=== PATIENT | male | born 1970 | race Caucasian/White ===

== ENCOUNTER 2021-11-26 15:09 | Inpatient (IN) | payer MEDICAID ==
[~2021-11-26] VITALS: Ht 175.3 cm; Wt 96.2 kg
[2021-11-26 15:12] VITALS: BP_SYST 126
--- NOTE | 2021-11-26 15:21 | NUR ---
Placed in room 5 . Placed on property assessment monitor, blood pressure machine and pulse oximeter. To gown for exam. Side rails up. Report given to JOSE D ZARAGOZA.
--- NOTE | 2021-11-26 16:08 | NUR ---
Patient noted to have urinary cath- emptied 1.2 L yellow urine. Will dip. Lab at BS.
[2021-11-26 16:27] LABS: EOSINOPHILS # (AUTO) 0.2 K/uL (0.0-0.4); HEMOGLOBIN 12.3 g/dL (14.0-18.0); MEAN CORPUSCULAR HEMOGLOBIN 29 pg (27-31)
[2021-11-26 16:31] LABS: BASOPHILS # (AUTO) 0.1 K/uL (0.0-0.2); BASOPHILS % (AUTO) 0.8 % (0.0-2.0); EOSINOPHILS % (AUTO) 1.6 % (0.0-4.0); HEMATOCRIT 36.9 % (36-54); LYMPHOCYTES # (AUTO) 2.5 K/uL (1.0-5.5); LYMPHOCYTES % (AUTO) 22.1 % (20.5-51.5); MEAN CORPUSCULAR HGB CONC 33 % (32-36); MEAN CORPUSCULAR VOLUME 86 fL (79.0-98.0); MONOCYTES # (AUTO) 0.6 K/uL (0.0-1.0); MONOCYTES % (AUTO) 5.8 % (1.7-9.3); NEUTROPHILS # (AUTO) 7.8 K/uL (1.8-7.7); NEUTROPHILS % (AUTO) 69.7 % (40.0-70.0); PLATELET COUNT (AUTO) 557 K/uL (130-430); RED CELL DISTRIBUTION WIDTH 14.9 % (9.0-15.0); WHITE BLOOD COUNT (AUTO) 11.1 K/uL (4.8-10.8)
[2021-11-26 16:36] LABS: BILIRUBIN,URINE NEGATIVE (NEGATIVE); CLARITY/URINE CLEAR (CLEAR); COLOR,URINE YELLOW (YELLOW); GLUCOSE,URINE NEGATIVE (NEGATIVE); KETONES,URINE NEGATIVE (NEGATIVE); LEUKOCYTE ESTERASE ,URINE NEGATIVE (NEGATIVE); NITRITE, URINE POSITIVE (NEGATIVE); PROTEIN URINE NEGATIVE (NEGATIVE); UROBILINOGEN,URINE 0.2 (0.2-1.0)
--- NOTE | 2021-11-26 16:36 | NUR ---
MORTEZA KO @ BS with patient.
[2021-11-26 16:41] LABS: CALCIUM 9.4 mg/dL (8.4-11.0); CREATININE 0.46 mg/dL (0.55-1.30); POTASSIUM 3.9 mmol/L (3.5-5.1)
[2021-11-26 16:44] LABS: BLOOD, URINE TRACE (NEGATIVE)
[2021-11-26 16:45] LABS: BACTERIA,URINE MODERATE /HPF (None Seen); MUCUS,URINE None Seen /LPF (None Seen); RBC,URINE 0-3 /HPF (0-3); WBC,URINE 0-3 /HPF (0-3)
[2021-11-26 16:46] LABS: ALBUMIN 2.8 g/dL (3.4-4.8); C-REACTIVE PROTEIN QUANT 0.2 mg/dL (0-0.5); TOTAL BILIRUBIN 0.3 mg/dL (0.0-1.0)
--- NOTE | 2021-11-26 17:00 | NUR ---
Pt incontinent of stool- cleansed patient and repositioned in bed. Pt very needy and asking multiple questions at the same time. Made pt aware that I would help him, but that I could only do one thing at a time.
[2021-11-26] MEDS ORDERED: cefTRIAXone 1 GM in LIDOCAINE 1%, 20 ML MDV 2.1 ML IM ONE (17:15)
[2021-11-26] MEDS ORDERED: MORPHINE 4 MG INJ. 4 MG/ML VIAL IVP ONE (17:15)
--- NOTE | 2021-11-26 18:28 | NUR ---
COVID swab sent
--- NOTE | 2021-11-26 19:14 | NUR ---
Report to Robles Manriquez RN.
[2021-11-26] MEDS ORDERED: BACL20TA PO (19:34)
[2021-11-26] MEDS ORDERED: GABA600T PO (19:35)
--- NOTE | 2021-11-26 19:53 | NUR ---
Pt turned onto left side at this time per patient request to alleviate pressure on coccyx. Pt speaking with significant other on phone. Pt informed awaiting approval of home meds in order for me to administer them. Pt on monitoring manager. Bed in low position. Side rails up.
[2021-11-26] MEDS ORDERED: BACLOFEN 10 MG TABLET PO ONE (20:15)
[2021-11-26] MEDS ORDERED: GABAPENTIN 300 MG CAPSULE PO ONE (20:15)
--- NOTE | 2021-11-26 20:27 | NUR ---
Attempted to reposition patient multiple times. Pt turned to left side, right side, and supine position with minimal relief of pain aside from medications. Pt also slid up in bed and HOB elevated to attempt to alleviate more pain. Pt states still has discomfort. Pt turned to left side again at this time.
--- NOTE | 2021-11-26 20:50 | NUR ---
aAdmit bed requested Patient will be admitted to care of . Admitted to Med Surg unit. Diagnosis UTI Inpatient (Yes or No) yes Observation (Yes or No) Orientation concerns or request close to nursing station (Yes or No) no Covid Status negative On vent or bipap Isolation requirements Needs a sitter From Home (Yes or if No enter name of facility) home Requires Dialysis (Yes or No) no Med Rec Completed (Yes of No) pending
--- NOTE | 2021-11-26 20:53 | NUR ---
Patient given another pillow to support left side of head. Pt also provided with emesis bag to spit saliva.
--- NOTE | 2021-11-26 21:20 | NUR ---
Patient will be admitted to care of [facility]. Admitted to unit. Will go to room . Belongings list completed. Complete and up to date summary report printed. SBAR report to be given at bedside with opportunity for questions.
--- NOTE | 2021-11-26 21:28 | NUR ---
Report given to JOSE D Gaxiola
[2021-11-26 21:54] VITALS: BP_SYST 114
--- NOTE | 2021-11-26 22:18 | NUR ---
CONSULTATION PAGED/CALLED Reason for Consultation: Uti Person Who was Notified: Ricardo Consulting Physician: Dr. Mason Clinical Coordinator Specialty: ID Ordering Physician: Dr. Apurva Tolbert
[2021-11-26] MEDS ORDERED: DOCUSATE SODIUM 100 MG CAPSULE PO ONE (23:15)
[2021-11-26] MEDS ORDERED: IBUPROFEN 600 MG TABLET PO ONE (23:15)
--- NOTE | 2021-11-26 23:15 | NUR ---
Dr. Mixon/Malachi orders Spoke with Dr. Mixon about patient's complaint of pain and constipation. Received order for milk of magnesia one time, Colace, melatonin, and ibuprofen.
[2021-11-26] MEDS: MILK OF MAGNESIA 30 ML UDC PO ONE ×2 (23:37)
[2021-11-27] VITALS (7 sets, daily range): BP systolic 93–123
--- NOTE | 2021-11-27 00:30 | NUR ---
Patient refused one time milk of magnesia because prune juice was not available at the time, but did have one medium soft/nonformed bowel movement and reported improved feeling of constipation. Incontinence care provided, linens changed. Call light in reach.
[2021-11-27] MEDS ORDERED: HYDROcodone/ACETAMIN 5-325 MG TAB (NORCO/ VICODIN) PO PRN ×2 (03:15→03:45)
--- NOTE | 2021-11-27 03:15 | NUR ---
Dr. Mixon/New orders Spoke with Dr. Mixon of patient's report of continued pain and difficulty sleeping. Received order for Stephen and trazodone PRN with readback and confirmation. Call light in reach.
--- NOTE | 2021-11-27 07:29 | NUR ---
Closing Patient resting in bed, unlabored breathing on room air. Turned and repositioned multiple times to offload weight on sacrum, where patient reports pain. Given Tramadol and Catharpin with some relief. Patient reported constipation upon admission to floor but had two soft/runny bowel movements during shift. Lima catheter in place, patent draining yellow urine. Exit alarm on, bed low and locked, fall and safety precautions in place.
[2021-11-27] MEDS ORDERED: LORazepam 2 MG/ML VIAL IVP PRN (08:30)
[2021-11-27] MEDS ORDERED: NALOXONE HCL 0.4 MG/ML AMP (NARCAN) IVP PRN (08:45)
[2021-11-27] MEDS ORDERED: BACLOFEN 10 MG TABLET PO SCH ×2 (09:00→21:00)
[2021-11-27] MEDS: DOCUSATE SODIUM 100 MG CAPSULE PO SCH ×2 (09:14→21:17)
[2021-11-27] MEDS: IBUPROFEN 600 MG TABLET PO SCH ×3 (09:18→21:16)
[2021-11-27] MEDS: GABAPENTIN 300 MG CAPSULE PO SCH ×3 (09:19→21:17)
[2021-11-27] MEDS: HYDROcodone/ACETAMIN 10-325 MG TAB PO PRN ×2 (09:20→13:45)
[2021-11-27] MEDS: NORMAL SALINE 5 ML DISP.SYRIN IVF SCH ×2 (13:22→21:18)
[2021-11-27] MEDS: cefTRIAXone 1 GM IVPB PREMIX 50 ML IV SCH (13:22)
[2021-11-27] MEDS ORDERED: NORMAL SALINE 5 ML DISP.SYRIN IVF SCH (14:00)
[2021-11-27] MEDS: ALBUTEROL SULFATE 0.083% 2.5 MG/3 ML VIAL.NEB INH PRN (18:04)
--- NOTE | 2021-11-27 19:07 | NUR ---
END OF SHIFT REPORT GIVEN TO JOSE D PANTOJA. THANK YOU
[2021-11-27] MEDS: traZODone HCL 50 MG TABLET (DESYREL) PO PRN (21:17)
[2021-11-27] MEDS: BACLOFEN 10 MG TABLET PO SCH (21:17)
[2021-11-28 00:30] VITALS: BP_SYST 102
[2021-11-28] MEDS: HYDROcodone/ACETAMIN 10-325 MG TAB PO PRN ×4 (00:53→16:01)
[2021-11-28] MEDS: NORMAL SALINE 5 ML DISP.SYRIN IVF SCH ×3 (05:48→21:49)
[2021-11-28 06:48] LABS: BASOPHILS # (AUTO) 0.1 K/uL (0.0-0.2); BASOPHILS % (AUTO) 0.6 % (0.0-2.0); EOSINOPHILS # (AUTO) 0.3 K/uL (0.0-0.4); EOSINOPHILS % (AUTO) 3.2 % (0.0-4.0); HEMOGLOBIN 11.2 g/dL (14.0-18.0); LYMPHOCYTES # (AUTO) 3.2 K/uL (1.0-5.5); LYMPHOCYTES % (AUTO) 36.9 % (20.5-51.5); MEAN CORPUSCULAR HEMOGLOBIN 29 pg (27-31); MEAN CORPUSCULAR HGB CONC 34 % (32-36); MEAN CORPUSCULAR VOLUME 86 fL (79.0-98.0); MONOCYTES # (AUTO) 0.7 K/uL (0.0-1.0); MONOCYTES % (AUTO) 8.2 % (1.7-9.3); NEUTROPHILS # (AUTO) 4.5 K/uL (1.8-7.7); NEUTROPHILS % (AUTO) 51.1 % (40.0-70.0); PLATELET COUNT (AUTO) 559 K/uL (130-430); RED BLOOD CELL COUNT(AUTO) 3.86 MIL/uL (4.2-6.2); RED CELL DISTRIBUTION WIDTH 15.1 % (9.0-15.0); WHITE BLOOD COUNT (AUTO) 8.7 K/uL (4.8-10.8)
--- NOTE | 2021-11-28 07:41 | NUR ---
Closing Patient resting in bed, unlabored breathing on room air. Turned and repositioned with pillow support. [place] given for complaint of back pain with some relief. Bed low and locked, fall and safety precautions in place.
[2021-11-28 07:54] LABS: ALBUMIN 2.6 g/dL (3.4-4.8); C-REACTIVE PROTEIN QUANT 0.6 mg/dL (0-0.5); CALCIUM 9.1 mg/dL (8.4-11.0); CREATININE 0.53 mg/dL (0.55-1.30); POTASSIUM 3.9 mmol/L (3.5-5.1); TOTAL BILIRUBIN 0.3 mg/dL (0.0-1.0)
[2021-11-28 08:00] VITALS: BP_SYST 106
--- NOTE | 2021-11-28 08:00 | NUR ---
OPENING NOTES: PATIENT EATING BREAKFAST W/ TOTAL ASSIST. HOB ELEVATED. BREATHING EVEN AND NON LABORED TO RA. FALL, SAFETY AND ASPIRATION MEASURES REINFORCED. BED LOCKED, ALARM ON AND IN LOWEST POSITION. CALL LIGHT WITHIN REACH.
[2021-11-28] MEDS: BACLOFEN 10 MG TABLET PO SCH ×4 (08:53→21:48)
[2021-11-28] MEDS: DOCUSATE SODIUM 100 MG CAPSULE PO SCH ×2 (08:53→21:48)
[2021-11-28] MEDS: IBUPROFEN 600 MG TABLET PO SCH ×3 (08:54→21:49)
[2021-11-28] MEDS: GABAPENTIN 300 MG CAPSULE PO SCH ×3 (08:57→21:48)
[2021-11-28] MEDS: cefTRIAXone 1 GM IVPB PREMIX 50 ML IV SCH (09:02)
[2021-11-28 09:08] LABS: ERYTHROCYTE SEDIMENTATION RATE 28 MM/HR (0-15)
[2021-11-28] MEDS ORDERED: POLYETHYLENE GLYCOL 3350, 17 GM/ POWD.PACK PO ONE (09:30)
[2021-11-28] MEDS ORDERED: SODIUM PHOSPHATE,MONO-DIBASIC 133 ML ENEMA RC ONE (09:30)
[2021-11-28 12:05] VITALS: BP_SYST 103
--- NOTE | 2021-11-28 16:13 | NUR ---
INCONTINENT CARE DONE: INCONTINENT CARE DONE. NO S/S OF ACUTE DISTRESS NOTED. REPOSITIONED PATIENT.
[2021-11-28 18:00] VITALS: BP_SYST 105
--- NOTE | 2021-11-28 19:00 | NUR ---
CLOSING NOTES: PATIENT RESTING IN BED. NO S/S OF ACUTE DISTRESS NOTED. NEEDS MET THROUGHOUT SHIFT. FALL AND SAFETY MEASURES PROVIDED. CALL LIGHT WITHIN REACH.
[2021-11-28 20:30] VITALS: BP_SYST 88
--- NOTE | 2021-11-28 20:47 | NUR ---
PAGED TO DR. ROMERO FOR ORDERS
--- NOTE | 2021-11-28 20:53 | NUR ---
BP 77/49, 88/50 on recheck. Patient alert and answering questions. Informed Dr. Mixon. Received order for 1 L NS bolus.
[2021-11-28] MEDS ORDERED: NACL 0.9% 1,000 ML IV ONE ×2 (21:00→23:30)
--- NOTE | 2021-11-28 23:28 | NUR ---
Informed Dr. Mixon of patient's BP 84/55 and low albumin. Received order for second 1 L NS bolus and D5 1/2 NS at 100 mL/hr.
[2021-11-29] VITALS (21 sets, daily range): BP systolic 89–131
[2021-11-29] MEDS: D5/0.45 NS 1,000 ML IV SCH ×3 (00:42→19:30)
[2021-11-29] MEDS: ALBUTEROL SULFATE 0.083% 2.5 MG/3 ML VIAL.NEB INH PRN (00:50)
--- NOTE | 2021-11-29 01:00 | NUR ---
BP 99/49. HOB positioned as low as tolerated by patient, feet elevated.
--- NOTE | 2021-11-29 04:30 | NUR ---
BP 89/57. Informed Dr. Mixon. Received order to transfer to ICU and for consult with Dr. Schroeder.
--- NOTE | 2021-11-29 05:20 | NUR ---
Opening notes Received report from Med-private advisor Khalida for continuity of care. Patient was transferred to ICU d/t hypotension. Patient's vital signs blood pressure 109/68, heart rate 69, and SPO2 96% on room air. Patient is in his bed in no signs of distress with IVF D5 1/2 NS @ 100 mL/hr.
[2021-11-29] MEDS: NORMAL SALINE 5 ML DISP.SYRIN IVF SCH ×3 (05:50→22:45)
[2021-11-29 06:20] LABS: BASOPHILS # (AUTO) 0.1 K/uL (0.0-0.2); BASOPHILS % (AUTO) 0.6 % (0.0-2.0); EOSINOPHILS # (AUTO) 0.3 K/uL (0.0-0.4); HEMATOCRIT 34.7 % (36-54); HEMOGLOBIN 11.6 g/dL (14.0-18.0); LYMPHOCYTES # (AUTO) 3.1 K/uL (1.0-5.5); LYMPHOCYTES % (AUTO) 32.1 % (20.5-51.5); MEAN CORPUSCULAR HEMOGLOBIN 29 pg (27-31); MEAN CORPUSCULAR HGB CONC 33 % (32-36); MEAN CORPUSCULAR VOLUME 87 fL (79.0-98.0); MONOCYTES % (AUTO) 10.7 % (1.7-9.3); NEUTROPHILS # (AUTO) 5.1 K/uL (1.8-7.7); NEUTROPHILS % (AUTO) 53.6 % (40.0-70.0); PLATELET COUNT (AUTO) 542 K/uL (130-430); RED BLOOD CELL COUNT(AUTO) 3.99 MIL/uL (4.2-6.2); RED CELL DISTRIBUTION WIDTH 15.2 % (9.0-15.0); WHITE BLOOD COUNT (AUTO) 9.5 K/uL (4.8-10.8)
[2021-11-29 06:39] LABS: C-REACTIVE PROTEIN QUANT 0.8 mg/dL (0-0.5); CALCIUM 9.2 mg/dL (8.4-11.0); CREATININE 0.49 mg/dL (0.55-1.30); POTASSIUM 4.2 mmol/L (3.5-5.1)
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
--- NOTE | 2021-11-29 08:14 | NUR ---
AWAITING ORDERS TO CONTINUE TREATMENT SINCE THE PATIENT HAS BEEN TRANSFERRED TO THE ICU.
--- NOTE | 2021-11-29 08:41 | NUR ---
Patient ate all of breakfast with nurse. no issues
[2021-11-29] MEDS: POLYETHYLENE GLYCOL 3350, 17 GM/ POWD.PACK PO SCH (09:51)
[2021-11-29] MEDS: GABAPENTIN 300 MG CAPSULE PO SCH ×3 (09:51→21:00)
[2021-11-29] MEDS: BACLOFEN 10 MG TABLET PO SCH ×2 (09:51→21:01)
[2021-11-29] MEDS: DOCUSATE SODIUM 100 MG CAPSULE PO SCH ×2 (09:51→20:58)
[2021-11-29] MEDS: cefTRIAXone 1 GM IVPB PREMIX 50 ML IV SCH (09:52)
[2021-11-29 10:17] LABS: ERYTHROCYTE SEDIMENTATION RATE 21 MM/HR (0-15)
[2021-11-29] MEDS: IBUPROFEN 600 MG TABLET PO SCH ×3 (12:03→21:00)
--- NOTE | 2021-11-29 13:01 | NUR ---
Patient ate 50% of lunch, but was unable to eat the chicken due to chewing ability. Dietary called and updated.
--- NOTE | 2021-11-29 16:24 | NUR ---
Dietitian Recommendations: Continue current diet order as tolerated Provide feeding assistance q meals daily Recommend continue daily bowel regimen Recommend prune juice daily or PRN for constipation Please refer to Nutrition Assessment for more details RAFAEL, JOSEE, ESTEPHANIA Addendum: 11/29/21 at [address] Amended: Links added.
[2021-11-29] MEDS ORDERED: BACLOFEN 10 MG TABLET PO ONE ×2 (16:30)
--- NOTE | 2021-11-29 16:30 | NUR ---
Patient was seen for OT eval for contracture management to both UE. Nursing said ok to see patient. Patient will benefit from wearing bilateral resting hand splints to prevent further LOM on both hands. Spoke to Nica, outpatient case manager and was able to speak to education teacher as well. Said will know by tomorrow availability of splints and will call rehab to notify. Pt. will be seen for OT follow up when splints arrive for adjustments, fitting, application of splints and caregiver training.
--- NOTE | 2021-11-29 16:31 | NUR ---
Referral sent to [facility] for hand splints [phone]-attn: Marcial Daniels
[2021-11-29] MEDS: HYDROcodone/ACETAMIN 5-325 MG TAB (NORCO/ VICODIN) PO PRN (18:52)
[2021-11-29] MEDS: MILK OF MAGNESIA 30 ML UDC PO PRN (18:52)
--- NOTE | 2021-11-29 19:00 | NUR ---
Received pt from outgoing nurse alert oriented x 3. vital done ,cares rendered and positioned to comfort side
--- NOTE | 2021-11-29 22:00 | NUR ---
vitals done patient medicated as ordered .offered some pudding
[2021-11-29] MEDS: SULFAMETHOXAZOLE /TRIMETHOPRIM 10 ML in D5W 250 ML IV SCH (22:47)
[2021-11-29] MEDS: MELATONIN 5 MG TABLET PO PRN (22:51)
--- NOTE | 2021-11-29 22:51 | NUR ---
pt medicated with melatonin for sleep vitals done and updated
[2021-11-30] VITALS (11 sets, daily range): BP systolic 109–138
[2021-11-30] MEDS: HYDROcodone/ACETAMIN 10-325 MG TAB PO PRN ×5 (00:39→22:32)
--- NOTE | 2021-11-30 00:39 | NUR ---
states pain 8/10 to both shoulders .medicated with [place] effectively
--- NOTE | 2021-11-30 04:00 | NUR ---
oxygen sats low
[2021-11-30] MEDS: D5/0.45 NS 1,000 ML IV SCH ×2 (05:30→13:51)
[2021-11-30] MEDS: NORMAL SALINE 5 ML DISP.SYRIN IVF SCH ×3 (05:37→22:00)
[2021-11-30] MEDS: SULFAMETHOXAZOLE /TRIMETHOPRIM 10 ML in D5W 250 ML IV SCH ×3 (06:28→22:34)
[2021-11-30 06:29] LABS: BASOPHILS % (AUTO) 0.3 % (0.0-2.0); EOSINOPHILS # (AUTO) 0.3 K/uL (0.0-0.4); EOSINOPHILS % (AUTO) 2.5 % (0.0-4.0); HEMATOCRIT 32.7 % (36-54); HEMOGLOBIN 10.9 g/dL (14.0-18.0); LYMPHOCYTES # (AUTO) 4.8 K/uL (1.0-5.5); MEAN CORPUSCULAR HEMOGLOBIN 29 pg (27-31); MEAN CORPUSCULAR HGB CONC 33 % (32-36); MEAN CORPUSCULAR VOLUME 87 fL (79.0-98.0); MONOCYTES # (AUTO) 1.1 K/uL (0.0-1.0); MONOCYTES % (AUTO) 9.1 % (1.7-9.3); NEUTROPHILS # (AUTO) 6.1 K/uL (1.8-7.7); NEUTROPHILS % (AUTO) 49.1 % (40.0-70.0); PLATELET COUNT (AUTO) 492 K/uL (130-430); RED BLOOD CELL COUNT(AUTO) 3.77 MIL/uL (4.2-6.2); RED CELL DISTRIBUTION WIDTH 15.5 % (9.0-15.0)
[2021-11-30 07:02] LABS: ALANINE AMINOTRANSFERASE 24 U/L (12-78); ALBUMIN 2.5 g/dL (3.4-4.8); ANION GAP 6 (5-15); ASPARTATE AMINOTRANSFERASE 11 U/L (10-37); C-REACTIVE PROTEIN QUANT 1.1 mg/dL (0-0.5); CALCIUM 8.6 mg/dL (8.4-11.0); CHLORIDE 106 mmol/L (98-107); CREATININE 0.49 mg/dL (0.55-1.30); GLUCOSE 104 mg/dL (70-99); POTASSIUM 4.1 mmol/L (3.5-5.1); SODIUM SERUM 138 mmol/L (136-145); TOTAL BILIRUBIN < 0.1 mg/dL (0.0-1.0); UREA NITROGEN, BLOOD 5 mg/dL (8-21)
[2021-11-30 07:37] LABS: GFR AFRICAN AMERICAN 229 mL/min (>90)
[2021-11-30 07:58] LABS: WHITE BLOOD COUNT (AUTO) 12.4 K/uL (4.8-10.8)
--- NOTE | 2021-11-30 08:00 | NUR ---
Initial notes awake, alert. denies any shortness of breath. has chronic back pain, will medicate. IVF infusing well. No distress
--- NOTE | 2021-11-30 08:00 | NUR ---
RT NOTES Pt. was noted to desat when asleep, offered to put O2, pt refused. Pt. confirmed of NIURKA diagnosis, but stated he refused to wear it from day one.
[2021-11-30] MEDS: DOCUSATE SODIUM 100 MG CAPSULE PO SCH ×2 (08:50→22:33)
[2021-11-30] MEDS: POLYETHYLENE GLYCOL 3350, 17 GM/ POWD.PACK PO SCH (08:50)
[2021-11-30] MEDS: IBUPROFEN 600 MG TABLET PO SCH ×3 (08:51→22:47)
[2021-11-30 09:18] LABS: ERYTHROCYTE SEDIMENTATION RATE 23 MM/HR (0-15)
[2021-11-30] MEDS: cefTRIAXone 1 GM IVPB PREMIX 50 ML IV SCH (09:36)
[2021-11-30] MEDS: GABAPENTIN 300 MG CAPSULE PO SCH ×3 (09:36→22:33)
[2021-11-30] MEDS: BACLOFEN 10 MG TABLET PO SCH ×3 (09:36→22:33)
--- NOTE | 2021-11-30 10:00 | NUR ---
transfer to [facility] unit, awake and oriented, no distress, on room air, v/s stable. skin intact
[2021-11-30] MEDS: MILK OF MAGNESIA 30 ML UDC PO PRN (22:47)
[2021-11-30] MEDS ORDERED: MELATONIN 5 MG TABLET PO ONE (23:02)
[2021-11-30] MEDS: MELATONIN 5 MG TABLET PO PRN (23:09)
[2021-12-01] MEDS: D5/0.45 NS 1,000 ML IV SCH ×3 (02:14→21:30)
[2021-12-01] MEDS: HYDROcodone/ACETAMIN 10-325 MG TAB PO PRN ×4 (03:38→20:53)
[2021-12-01] MEDS: NORMAL SALINE 5 ML DISP.SYRIN IVF SCH ×3 (06:02→21:07)
[2021-12-01] MEDS: SULFAMETHOXAZOLE /TRIMETHOPRIM 10 ML in D5W 250 ML IV SCH ×3 (06:03→21:07)
[2021-12-01 08:10] LABS: BASOPHILS # (AUTO) 0.1 K/uL (0.0-0.2); BASOPHILS % (AUTO) 0.8 % (0.0-2.0); EOSINOPHILS # (AUTO) 0.4 K/uL (0.0-0.4); EOSINOPHILS % (AUTO) 4.6 % (0.0-4.0); HEMATOCRIT 31.2 % (36-54); HEMOGLOBIN 10.6 g/dL (14.0-18.0); LYMPHOCYTES # (AUTO) 2.9 K/uL (1.0-5.5); LYMPHOCYTES % (AUTO) 36.8 % (20.5-51.5); MEAN CORPUSCULAR HEMOGLOBIN 29 pg (27-31); MEAN CORPUSCULAR HGB CONC 34 % (32-36); MEAN CORPUSCULAR VOLUME 86 fL (79.0-98.0); MONOCYTES # (AUTO) 0.7 K/uL (0.0-1.0); NEUTROPHILS # (AUTO) 3.9 K/uL (1.8-7.7); NEUTROPHILS % (AUTO) 48.8 % (40.0-70.0); PLATELET COUNT (AUTO) 468 K/uL (130-430); RED BLOOD CELL COUNT(AUTO) 3.61 MIL/uL (4.2-6.2); RED CELL DISTRIBUTION WIDTH 15.3 % (9.0-15.0); WHITE BLOOD COUNT (AUTO) 7.9 K/uL (4.8-10.8)
[2021-12-01] MEDS: POLYETHYLENE GLYCOL 3350, 17 GM/ POWD.PACK PO SCH (08:45)
[2021-12-01] MEDS: GABAPENTIN 300 MG CAPSULE PO SCH ×3 (08:45→20:51)
[2021-12-01] MEDS: IBUPROFEN 600 MG TABLET PO SCH ×3 (08:46→20:52)
[2021-12-01] MEDS: DOCUSATE SODIUM 100 MG CAPSULE PO SCH ×2 (08:46→20:51)
[2021-12-01 08:48] LABS: C-REACTIVE PROTEIN QUANT 1.7 mg/dL (0-0.5); CALCIUM 8.5 mg/dL (8.4-11.0); CREATININE 0.52 mg/dL (0.55-1.30); POTASSIUM 4.1 mmol/L (3.5-5.1)
[2021-12-01] MEDS: BACLOFEN 10 MG TABLET PO SCH ×3 (08:52→20:51)
[2021-12-01 12:07] VITALS: BP_SYST 142
[2021-12-01 12:26] LABS: ERYTHROCYTE SEDIMENTATION RATE 26 MM/HR (0-15)
--- NOTE | 2021-12-01 14:58 | NUR ---
Discharge Planning: DCP faxed pt referral to [facility] F#[phone]. DCP to follow up
[2021-12-01 16:02] VITALS: BP_SYST 136
[2021-12-02 01:11] VITALS: BP_SYST 105
[2021-12-02] MEDS: traZODone HCL 50 MG TABLET (DESYREL) PO PRN (01:44)
[2021-12-02] MEDS: HYDROcodone/ACETAMIN 10-325 MG TAB PO PRN ×3 (01:45→18:48)
[2021-12-02] MEDS: SULFAMETHOXAZOLE /TRIMETHOPRIM 10 ML in D5W 250 ML IV SCH ×2 (06:44→14:33)
[2021-12-02] MEDS: D5/0.45 NS 1,000 ML IV SCH ×2 (06:45→08:52)
[2021-12-02] MEDS: NORMAL SALINE 5 ML DISP.SYRIN IVF SCH ×3 (06:45→22:26)
[2021-12-02 07:34] LABS: BASOPHILS % (AUTO) 0.6 % (0.0-2.0); EOSINOPHILS # (AUTO) 0.4 K/uL (0.0-0.4); HEMATOCRIT 31.7 % (36-54); HEMOGLOBIN 10.7 g/dL (14.0-18.0); LYMPHOCYTES % (AUTO) 36.9 % (20.5-51.5); MEAN CORPUSCULAR HEMOGLOBIN 29 pg (27-31); MEAN CORPUSCULAR HGB CONC 34 % (32-36); MEAN CORPUSCULAR VOLUME 86 fL (79.0-98.0); MONOCYTES # (AUTO) 0.7 K/uL (0.0-1.0); MONOCYTES % (AUTO) 8.5 % (1.7-9.3); PLATELET COUNT (AUTO) 450 K/uL (130-430); RED BLOOD CELL COUNT(AUTO) 3.69 MIL/uL (4.2-6.2); RED CELL DISTRIBUTION WIDTH 15.7 % (9.0-15.0); WHITE BLOOD COUNT (AUTO) 8.1 K/uL (4.8-10.8)
[2021-12-02 08:00] VITALS: BP_SYST 101
--- NOTE | 2021-12-02 08:42 | NUR ---
Discharge Planning: DCP faxed pt Vil[facility] [phone] DCP to follow up Addendum: 12/02/21 at 1635 by Anjana Jimenez DP Vilma [facility] [phone] declined pt.
[2021-12-02] MEDS: POLYETHYLENE GLYCOL 3350, 17 GM/ POWD.PACK PO SCH (08:52)
[2021-12-02] MEDS: DOCUSATE SODIUM 100 MG CAPSULE PO SCH ×2 (08:53→22:23)
[2021-12-02] MEDS: IBUPROFEN 600 MG TABLET PO SCH ×3 (08:53→22:25)
[2021-12-02] MEDS: BACLOFEN 10 MG TABLET PO SCH ×3 (08:53→22:23)
[2021-12-02] MEDS: GABAPENTIN 300 MG CAPSULE PO SCH ×3 (08:54→22:25)
[2021-12-02 09:34] LABS: ALBUMIN 2.4 g/dL (3.4-4.8); C-REACTIVE PROTEIN QUANT 1.2 mg/dL (0-0.5); CREATININE 0.66 mg/dL (0.55-1.30); POTASSIUM 4.6 mmol/L (3.5-5.1); TOTAL BILIRUBIN 0.2 mg/dL (0.0-1.0)
--- NOTE | 2021-12-02 10:48 | NUR ---
RECEIVED MD ORDER TO RESUME PHYSICAL THERAPY. PATIENT REMAINS AT HIS PRIOR LEVEL OF FUNCTION. TREATMENT FOR ROM AND ASSISTED SITTING AT THE EDGE OF BED WILL BE RESUMED. STILL AWAITING HAND SPLINTS FOR THE OT FOLLOW UP.
[2021-12-02] MEDS: MILK OF MAGNESIA 30 ML UDC PO PRN (11:27)
[2021-12-02 12:00] VITALS: BP_SYST 103
[2021-12-02] MEDS ORDERED: HYDR-3927 PO (12:00)
[2021-12-02] MEDS ORDERED: MOM PO (12:00)
[2021-12-02] MEDS ORDERED: HYDR-3919 PO (12:00)
[2021-12-02] MEDS ORDERED: TRAZ-250 PO (12:00)
[2021-12-02] MEDS ORDERED: POLY17PO4 PO (12:00)
[2021-12-02] MEDS ORDERED: [UNRECOGNIZED DRUG - CODE] IV (12:00)
[2021-12-02] MEDS ORDERED: Melatonin PO (12:00)
[2021-12-02 12:19] LABS: ERYTHROCYTE SEDIMENTATION RATE 23 MM/HR (0-15)
[2021-12-02] MEDS: ALBUTEROL SULFATE 0.083% 2.5 MG/3 ML VIAL.NEB INH PRN (14:21)
[2021-12-02] MEDS: HYDROcodone/ACETAMIN 5-325 MG TAB (NORCO/ VICODIN) PO PRN (14:43)
[2021-12-02 16:00] VITALS: BP_SYST 108
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
--- NOTE | 2021-12-02 17:15 | NUR ---
Dietitian Recommendations * Continue Regular diet * Continue daily bowel regimen * Prune juice daily or PRN for constipation LP, MS, RD Please refer to Nutrition F/U for details.
--- NOTE | 2021-12-02 19:30 | NUR ---
HAND-OFF REPORT RECEIVED FROM MOMO JEFFERY...."PT WANTS ENEMA". PT RECEIVED AWAKE IN BED. "I THINK I'M SOILED". NOTED MASSIVE AMT OF SOFT THICK BROWN UNFORMED STOOL SQUISHED UP AND OOZING OUT BOTH SIDES OF THE HIPS. PT STATED ABDOMINAL RELIEF UPON PASSING. TOTAL BATH AND LINEN CHANGE GIVEN. MONITOR AND ASSIST WITH COMFORT MEASURES AND PAIN.
[2021-12-02 20:00] VITALS: BP_SYST 124
--- NOTE | 2021-12-03 | NUR ---
SEE MAR PRN PAIN HEAD SAWYER AUTOMATIC. CONT. TO TURN AND ELEVATE EXTREMITIES ON PILLOWS PER COMFORT AND PROPER BODY ALIGNMENT.
[2021-12-03] MEDS ORDERED: MELATONIN 5 MG TABLET PO ONE (00:24)
[2021-12-03] MEDS: HYDROcodone/ACETAMIN 10-325 MG TAB PO PRN ×2 (00:48→04:42)
[2021-12-03] MEDS: SULFAMETHOXAZOLE /TRIMETHOPRIM 10 ML in D5W 250 ML IV SCH ×4 (00:50→22:01)
[2021-12-03] MEDS: D5/0.45 NS 1,000 ML IV SCH (00:51)
[2021-12-03 00:52] VITALS: BP_SYST 131
[2021-12-03] MEDS: ALBUTEROL SULFATE 0.083% 2.5 MG/3 ML VIAL.NEB INH PRN (02:34)
[2021-12-03] MEDS: NORMAL SALINE 5 ML DISP.SYRIN IVF SCH ×3 (06:41→22:04)
--- NOTE | 2021-12-03 07:00 | NUR ---
GI CONSULT ROUNDED AND DISCUSSED WITH PT PLAN OF CARE CONCERNING CONSTIPATION.
--- NOTE | 2021-12-03 07:30 | NUR ---
HANDOFF REPORT TO ALEJANDRA GRAJEDA. PT AWAKE IN BED WITH HOB UP. NO RESPIRATORY DISTRESS. DENIES CP. BUTLER CONT TO GRAVITY FLOW PALE CLEAR YELLOW URINE. RELINQUISHED CARE AT THIS TIME.
[2021-12-03 07:39] LABS: C-REACTIVE PROTEIN QUANT 0.8 mg/dL (0-0.5); CALCIUM 8.9 mg/dL (8.4-11.0); CREATININE 0.71 mg/dL (0.55-1.30); POTASSIUM 4.7 mmol/L (3.5-5.1)
[2021-12-03 07:41] LABS: BASOPHILS # (AUTO) 0.1 K/uL (0.0-0.2); BASOPHILS % (AUTO) 0.6 % (0.0-2.0); EOSINOPHILS # (AUTO) 0.4 K/uL (0.0-0.4); EOSINOPHILS % (AUTO) 4.3 % (0.0-4.0); HEMATOCRIT 30.6 % (36-54); HEMOGLOBIN 10.5 g/dL (14.0-18.0); LYMPHOCYTES # (AUTO) 2.8 K/uL (1.0-5.5); LYMPHOCYTES % (AUTO) 31.2 % (20.5-51.5); MEAN CORPUSCULAR HEMOGLOBIN 30 pg (27-31); MEAN CORPUSCULAR HGB CONC 34 % (32-36); MEAN CORPUSCULAR VOLUME 86 fL (79.0-98.0); MONOCYTES # (AUTO) 1.1 K/uL (0.0-1.0); MONOCYTES % (AUTO) 11.9 % (1.7-9.3); NEUTROPHILS # (AUTO) 4.7 K/uL (1.8-7.7); PLATELET COUNT (AUTO) 432 K/uL (130-430); RED BLOOD CELL COUNT(AUTO) 3.56 MIL/uL (4.2-6.2); RED CELL DISTRIBUTION WIDTH 15.5 % (9.0-15.0); WHITE BLOOD COUNT (AUTO) 9.1 K/uL (4.8-10.8)
[2021-12-03 08:00] VITALS: BP_SYST 126
[2021-12-03] MEDS ORDERED: POLYETHYLENE GLYCOL 3350, 17 GM/ POWD.PACK PO ONE (08:00)
[2021-12-03] MEDS ORDERED: MAGNESIUM CITRATE 300 ML ORAL SOLUTION PO ONE (08:00)
[2021-12-03] MEDS ORDERED: BISACODYL 10 MG/SUPPOSITORY RC PRN (08:00)
[2021-12-03] MEDS: IBUPROFEN 600 MG TABLET PO SCH ×3 (08:56→22:04)
[2021-12-03] MEDS: GABAPENTIN 300 MG CAPSULE PO SCH ×3 (08:56→22:02)
[2021-12-03] MEDS: DOCUSATE SODIUM 100 MG CAPSULE PO SCH ×3 (08:56→22:56)
[2021-12-03] MEDS: BACLOFEN 10 MG TABLET PO SCH ×3 (08:57→22:02)
[2021-12-03 09:20] VITALS: BP_SYST 131
--- NOTE | 2021-12-03 10:00 | NUR ---
LARGE BOWEL MOVEMENT Patient produced a large, soft, bowel movement. Stated that he feels less pressure in his abdomen.
--- NOTE | 2021-12-03 11:08 | NUR ---
1120 SUCTIONED PT ORALLY, PT PREFERS CATHETER, SCANT CLEAR SECRETIONS. SAT 97% Addendum: 12/03/21 at 1709 by Delia Vernon RT Amended: Links added.
[2021-12-03 12:00] VITALS: BP_SYST 157
[2021-12-03 12:22] LABS: ERYTHROCYTE SEDIMENTATION RATE 23 MM/HR (0-15)
[2021-12-03] MEDS: HYDROcodone/ACETAMIN 5-325 MG TAB (NORCO/ VICODIN) PO PRN (13:47)
[2021-12-03 16:54] VITALS: BP_SYST 138
--- NOTE | 2021-12-03 17:09 | NUR ---
1620 SUCTIONED PT ORALLY WITH CATHETER, SMALL THIN CLEAR SECRETIONS. Addendum: 12/03/21 at 1710 by Delia Vernon RT Amended: Links added.
--- NOTE | 2021-12-03 18:00 | NUR ---
PATIENT MOVED TO 121C Patient moved to 121 bed C to be closer to the nurses station and for patient's comfort.
--- NOTE | 2021-12-03 19:39 | NUR ---
CLOSING NOTE Patient in bed resting, no sign of distress. Breathing is nonlabored and even. Patient has complained of constant pain throughout shift regardless of pain medications and pillow support/bed adjustments. Comfort measures provided but patient continues to be anxious about his mobility. Patient has a slight non productive cough and frequently requests to be suctioned without much output. IV is clean, dry, intact and saline locked. Ilma catheter in place with clear yellow urine output. All needs met at this time and safety checks made. Endorsed to dough braker nurse.
[2021-12-03] MEDS: OXYCODONE/ACETAMINOPHEN 5-325 TABLET PO PRN (20:12)
[2021-12-03] MEDS: POLYETHYLENE GLYCOL 3350, 17 GM/ POWD.PACK PO SCH (21:00)
[2021-12-03] MEDS: traZODone HCL 50 MG TABLET (DESYREL) PO PRN (22:56)
--- NOTE | 2021-12-03 23:08 | NUR ---
MIDSHIFT NOTE: Pt very needy. Pt c/o pain multiple times, positioning adjustments, making phone calls (3), and adjusting Yankauer suction (was not set up so song writer set suction up and adjusted Yankauer suction tip positioning to pt's satisfaction). Pt requested Melatonin - none available in drawers and none available in Pyxis (all three machines).
[2021-12-04] MEDS: OXYCODONE/ACETAMINOPHEN 5-325 TABLET PO PRN (04:09)
--- NOTE | 2021-12-04 04:22 | NUR ---
Pt repositioned at 0400. Pt given Percocet about that time. Pt Lima Catheter emptied and logged earlier. Pt was just repositioned to his liking at about 0400 and now wants repositioning again. Pt Very Needy. Addendum: 12/04/21 at 0442 by [facility] chiropractic physician pt positioned comfortably and to pt liking. all needs met.
--- NOTE | 2021-12-04 05:07 | NUR ---
Pt asking for another bed b/c the bed being used currently does not allow HOB to be raised further. Will advise CN. Pt also requesting nurse raise and lower HOB, then raise and lower HOB, multiple times. Done.
[2021-12-04] MEDS: SULFAMETHOXAZOLE /TRIMETHOPRIM 10 ML in D5W 250 ML IV SCH (05:30)
[2021-12-04] MEDS: NORMAL SALINE 5 ML DISP.SYRIN IVF SCH ×3 (06:32→21:02)
[2021-12-04 07:05] LABS: BASOPHILS # (AUTO) 0.1 K/uL (0.0-0.2); BASOPHILS % (AUTO) 0.7 % (0.0-2.0); EOSINOPHILS # (AUTO) 0.5 K/uL (0.0-0.4); EOSINOPHILS % (AUTO) 5.8 % (0.0-4.0); HEMATOCRIT 30.8 % (36-54); HEMOGLOBIN 10.6 g/dL (14.0-18.0); LYMPHOCYTES # (AUTO) 2.2 K/uL (1.0-5.5); LYMPHOCYTES % (AUTO) 27.3 % (20.5-51.5); MEAN CORPUSCULAR HEMOGLOBIN 30 pg (27-31); MEAN CORPUSCULAR HGB CONC 34 % (32-36); MEAN CORPUSCULAR VOLUME 86 fL (79.0-98.0); MONOCYTES # (AUTO) 0.7 K/uL (0.0-1.0); MONOCYTES % (AUTO) 8.6 % (1.7-9.3); NEUTROPHILS # (AUTO) 4.6 K/uL (1.8-7.7); NEUTROPHILS % (AUTO) 57.6 % (40.0-70.0); PLATELET COUNT (AUTO) 412 K/uL (130-430); RED BLOOD CELL COUNT(AUTO) 3.59 MIL/uL (4.2-6.2); RED CELL DISTRIBUTION WIDTH 14.9 % (9.0-15.0); WHITE BLOOD COUNT (AUTO) 7.9 K/uL (4.8-10.8)
[2021-12-04 07:49] LABS: C-REACTIVE PROTEIN QUANT 0.7 mg/dL (0-0.5); CALCIUM 8.8 mg/dL (8.4-11.0); CREATININE 0.62 mg/dL (0.55-1.30); POTASSIUM 4.7 mmol/L (3.5-5.1)
[2021-12-04 08:00] VITALS: BP_SYST 124
--- NOTE | 2021-12-04 08:00 | NUR ---
OPENING NOTE Patient in bed, alert and oriented x4. Patient is agitated and frustrated that he is in pain and unable to get comfortable in bed. Repositioned patient and offered comfort measures. IV is clean, dry, intact, and patent. Lima catheter in place draining clear yellow urine. All needs met at this time and safety checks made.
[2021-12-04] MEDS: POLYETHYLENE GLYCOL 3350, 17 GM/ POWD.PACK PO SCH ×2 (09:00→20:54)
[2021-12-04 09:44] LABS: ERYTHROCYTE SEDIMENTATION RATE 25 MM/HR (0-15)
[2021-12-04] MEDS: DOCUSATE SODIUM 100 MG CAPSULE PO SCH ×2 (09:44→20:55)
[2021-12-04] MEDS: BACLOFEN 10 MG TABLET PO SCH ×3 (09:44→20:54)
[2021-12-04] MEDS: GABAPENTIN 300 MG CAPSULE PO SCH ×3 (09:44→20:55)
[2021-12-04] MEDS: IBUPROFEN 600 MG TABLET PO SCH ×3 (09:45→20:55)
[2021-12-04] MEDS: HYDROcodone/ACETAMIN 10-325 MG TAB PO PRN ×3 (10:01→23:25)
[2021-12-04] MEDS: NACL 0.9% 1,000 ML IV SCH ×2 (11:25→21:01)
[2021-12-04 12:00] VITALS: BP_SYST 119
[2021-12-04] MEDS: MORPHINE 2 MG/ML INJ. SYRINGE IVP PRN ×2 (13:13→20:57)
[2021-12-04 16:00] VITALS: BP_SYST 126
--- NOTE | 2021-12-04 16:30 | NUR ---
NEW BED Patient moved to a new bed as his previous bed was not allowing for the foot portion of the mattress to move. All needs met at this time and safety checks made.
[2021-12-04 19:00] VITALS: BP_SYST 136
--- NOTE | 2021-12-04 19:23 | NUR ---
CLOSING NOTE Patient in bed resting, no sign of distress. Patient has consistently complained of pain regardless of medications or pillow support. Comfort measures provided throughout shift. IV is clean, dry, intact, and running prescribed fluids. Lima catheter in place draining yellow urine. Patient has been turned and adjusted in bed throughout shift. All needs met at this time and safety checks made. Endorsed to fresh foods cake decorator nurse.
[2021-12-04 20:00] VITALS: BP_SYST 136
[2021-12-04] MEDS: traZODone HCL 50 MG TABLET (DESYREL) PO PRN (20:54)
[2021-12-04] MEDS: MILK OF MAGNESIA 30 ML UDC PO PRN (20:56)
[2021-12-04] MEDS: SULFAMETHOXAZOLE/TRIMETHOPR DS 1 TABLET PO SCH (20:56)
[2021-12-05] MEDS: MORPHINE 2 MG/ML INJ. SYRINGE IVP PRN ×4 (03:52→20:21)
[2021-12-05 04:02] VITALS: BP_SYST 126
[2021-12-05] MEDS: NORMAL SALINE 5 ML DISP.SYRIN IVF SCH ×3 (06:11→21:45)
[2021-12-05] MEDS: NACL 0.9% 1,000 ML IV SCH (06:12)
[2021-12-05 06:52] LABS: BASOPHILS % (AUTO) 0.5 % (0.0-2.0); EOSINOPHILS # (AUTO) 0.3 K/uL (0.0-0.4); EOSINOPHILS % (AUTO) 5.2 % (0.0-4.0); HEMATOCRIT 31.5 % (36-54); HEMOGLOBIN 10.9 g/dL (14.0-18.0); LYMPHOCYTES # (AUTO) 2.3 K/uL (1.0-5.5); LYMPHOCYTES % (AUTO) 35.8 % (20.5-51.5); MEAN CORPUSCULAR HEMOGLOBIN 29 pg (27-31); MEAN CORPUSCULAR HGB CONC 35 % (32-36); MEAN CORPUSCULAR VOLUME 85 fL (79.0-98.0); MONOCYTES # (AUTO) 0.6 K/uL (0.0-1.0); MONOCYTES % (AUTO) 9.4 % (1.7-9.3); NEUTROPHILS # (AUTO) 3.1 K/uL (1.8-7.7); NEUTROPHILS % (AUTO) 49.1 % (40.0-70.0); PLATELET COUNT (AUTO) 371 K/uL (130-430); WHITE BLOOD COUNT (AUTO) 6.3 K/uL (4.8-10.8)
[2021-12-05] MEDS: OXYCODONE/ACETAMINOPHEN 5-325 TABLET PO PRN ×3 (07:05→23:09)
--- NOTE | 2021-12-05 07:24 | NUR ---
PHYSICAL THERAPY CO-SIGN The Physical Therapy Progress Notes documented by Lap Machine Tender have been reviewed. Reviewed/Co-Signed by: Franck Patel Documentation Done by: KEVIN LINO PTA Addendum: 12/05/21 at 0724 by Franck Patel PT Amended: Links added.
[2021-12-05 07:42] VITALS: BP_SYST 139
--- NOTE | 2021-12-05 07:55 | NUR ---
RECEIVED PATIENT FROM PM NURSE, RESTING COMFORTABLY IN BED, NO S/SX OF DISTRESS OR DISCOMFORT OBSERVED, WILL ASSUME ALL CARE OF PATIENT
[2021-12-05] MEDS: POLYETHYLENE GLYCOL 3350, 17 GM/ POWD.PACK PO SCH ×2 (08:45→21:26)
[2021-12-05] MEDS: BACLOFEN 10 MG TABLET PO SCH ×3 (08:46→21:26)
[2021-12-05] MEDS: IBUPROFEN 600 MG TABLET PO SCH ×3 (08:47→21:27)
[2021-12-05] MEDS: SULFAMETHOXAZOLE/TRIMETHOPR DS 1 TABLET PO SCH ×2 (08:47→21:26)
[2021-12-05] MEDS: GABAPENTIN 300 MG CAPSULE PO SCH ×3 (08:47→21:26)
[2021-12-05] MEDS: DOCUSATE SODIUM 100 MG CAPSULE PO SCH ×2 (08:47→21:27)
[2021-12-05 09:12] LABS: ALBUMIN 2.4 g/dL (3.4-4.8); C-REACTIVE PROTEIN QUANT 0.3 mg/dL (0-0.5); CREATININE 0.69 mg/dL (0.55-1.30); PHOSPHORUS 4.2 mg/dL (2.7-4.5); POTASSIUM 4.6 mmol/L (3.5-5.1); THYROID STIMULATING HORMONE 2.01 uIu/mL (0.36-3.74); TOTAL BILIRUBIN 0.1 mg/dL (0.0-1.0)
[2021-12-05 09:19] LABS: CALCIUM 6.5 mg/dL (8.4-11.0)
--- NOTE | 2021-12-05 11:08 | NUR ---
CIRCUITS ENGINEER/LATE ENTRY LATE ENTRY CONTACT OCCURRED 12/01/2021 ACSW Latoya responded to a Social Service Consult for "quadriplegic and has few days left at mot'. ACSW met with patient at bedside. ACSW completed introductions, reason for referral, and provided business card, patient was open to contact. Housing- Patient shares he currently resides in [facility] in [place] with his fidarnell Duggan. He states he has the means to continue his stay following discharge and would like to return. He also shares that he is receiving case management support from [employer] with geriatric case manager Myrna and they have assisted him with finding permanent housing. According to patient he is expecting to move into an apartment in 2 weeks. Home health- patient also shared he was previously receiving home health services via [facility] or [facility] (he was unable to remember) PT- Patient expressed wanting to return home so he can return to rehab services with [facility] to address his spinal cord injury. Varun also shared he is awaiting delivery of a motorized wheelchair to his room at the mot. Patient expressed a desire to return to his motel, and expressed he did not feel comfortable discharging to a SNF. ACSW acknowledged patient's wishes and informed him they would be relayed to [facility]. He declined community resources at this time ACSW will continue to be available as needed
[2021-12-05] MEDS ORDERED: CALCIUM GLUCONATE 2 GM in NS 100 ML IV ONE ×2 (11:30→14:00)
[2021-12-05 12:14] VITALS: BP_SYST 131
[2021-12-05 12:36] LABS: ERYTHROCYTE SEDIMENTATION RATE 21 MM/HR (0-15)
[2021-12-05] MEDS ORDERED: HYDR-3927 PO (13:17)
[2021-12-05] MEDS ORDERED: HYDR-3919 PO (13:17)
[2021-12-05] MEDS ORDERED: SULF1TAB48 PO ×2 (13:17)
--- NOTE | 2021-12-05 14:30 | NUR ---
PATIENT TRANSFERRED TO [facility]
--- NOTE | 2021-12-05 15:40 | NUR ---
Spoke w/patient's girlfriend, Olga Lidia Mcdonough- she will not be home to accept the patient until 10 AM tomorrow. She will be able to accept the patient tomorrow AM
[2021-12-05 16:52] VITALS: BP_SYST 128
[2021-12-05 20:00] VITALS: BP_SYST 101
[2021-12-05] MEDS: MILK OF MAGNESIA 30 ML UDC PO PRN (21:26)
[2021-12-05] MEDS: traZODone HCL 50 MG TABLET (DESYREL) PO PRN (21:43)
--- NOTE | 2021-12-05 22:00 | NUR ---
20:00 PT IS AWAKE AND ALERT X 4. NO S/S OF DISTRESS OR ACTIVE BLEEDING. BREATHING IS EVEN AND UNLABORED. PATIENT IS QUADRIPLEGIC WITH CONTRACTIONS NOTED ON UPPER EXTREMITIES BUT IS ABLE TO MOVE RIGHT > LEFT ARM. SOME MUSCLE MOVEMENTS NOTED ON RIGHT LOWER EXTREMITIES AND VERY LITTLE ON LEFT. TOTAL CARE NEEDED FOR PATIENT. IV SALINE LOCK. INDWELLING URINARY CATHETER PATENT AND INTACT WITH YELLOW URINE DRAINING. 22:00. PATIENT IS NON-COMPLIANT ON HIS DIET HE REQUESTS JUICE AND WATER WHILE HE IS ON FLUID RESTRICTION OF 1000 ML/24 HRS. EXPLAINED THE IMPORTANCE OF FOLLOWING THE DOCTOR'S ORDER ESPECIALLY HIS SODIUM LEVEL IS BELOW THE NORMAL RANGE. PT STILL ASKING FOR JUICE AND WATER.
[2021-12-06] VITALS (8 sets, daily range): BP systolic 96–120
[2021-12-06] MEDS: MORPHINE 2 MG/ML INJ. SYRINGE IVP PRN ×5 (01:10→19:07)
[2021-12-06] MEDS: HYDROcodone/ACETAMIN 10-325 MG TAB PO PRN ×2 (02:42→21:59)
[2021-12-06] MEDS: NORMAL SALINE 5 ML DISP.SYRIN IVF SCH ×3 (06:30→22:15)
[2021-12-06 07:00] LABS: BASOPHILS # (AUTO) 0.1 K/uL (0.0-0.2); BASOPHILS % (AUTO) 0.8 % (0.0-2.0); EOSINOPHILS # (AUTO) 0.3 K/uL (0.0-0.4); EOSINOPHILS % (AUTO) 5.3 % (0.0-4.0); HEMATOCRIT 30.6 % (36-54); HEMOGLOBIN 10.4 g/dL (14.0-18.0); LYMPHOCYTES # (AUTO) 2.5 K/uL (1.0-5.5); LYMPHOCYTES % (AUTO) 37.9 % (20.5-51.5); MEAN CORPUSCULAR HEMOGLOBIN 29 pg (27-31); MEAN CORPUSCULAR HGB CONC 34 % (32-36); MEAN CORPUSCULAR VOLUME 86 fL (79.0-98.0); MONOCYTES # (AUTO) 0.7 K/uL (0.0-1.0); MONOCYTES % (AUTO) 10.4 % (1.7-9.3); NEUTROPHILS % (AUTO) 45.6 % (40.0-70.0); PLATELET COUNT (AUTO) 343 K/uL (130-430); RED BLOOD CELL COUNT(AUTO) 3.56 MIL/uL (4.2-6.2); RED CELL DISTRIBUTION WIDTH 15.2 % (9.0-15.0); WHITE BLOOD COUNT (AUTO) 6.6 K/uL (4.8-10.8)
[2021-12-06 07:49] LABS: C-REACTIVE PROTEIN QUANT 0.3 mg/dL (0-0.5); CALCIUM 8.9 mg/dL (8.4-11.0); CREATININE 0.78 mg/dL (0.55-1.30); POTASSIUM 5.2 mmol/L (3.5-5.1)
--- NOTE | 2021-12-06 08:05 | NUR ---
PHYSICAL THERAPY CO-SIGN The Physical Therapy Progress Notes documented by Guitar Maker Hand have been reviewed. Reviewed/Co-Signed by: Franck Patel Documentation Done by: KEVIN LINO PTA Addendum: 12/06/21 at 0805 by Franck Patel PT Amended: Links added.
[2021-12-06] MEDS: SULFAMETHOXAZOLE/TRIMETHOPR DS 1 TABLET PO SCH ×2 (08:57→21:01)
[2021-12-06] MEDS: GABAPENTIN 300 MG CAPSULE PO SCH ×3 (08:58→21:00)
[2021-12-06] MEDS: BACLOFEN 10 MG TABLET PO SCH ×3 (08:58→21:00)
[2021-12-06] MEDS: IBUPROFEN 600 MG TABLET PO SCH ×3 (08:58→21:00)
[2021-12-06] MEDS: DOCUSATE SODIUM 100 MG CAPSULE PO SCH ×2 (08:58→21:01)
[2021-12-06] MEDS: POLYETHYLENE GLYCOL 3350, 17 GM/ POWD.PACK PO SCH ×2 (08:59→21:01)
[2021-12-06] MEDS ORDERED: LORazepam 2 MG/ML VIAL IVP PRN (09:15)
[2021-12-06] MEDS: OXYCODONE/ACETAMINOPHEN 5-325 TABLET PO PRN ×2 (09:37→17:47)
[2021-12-06 09:42] LABS: ERYTHROCYTE SEDIMENTATION RATE 22 MM/HR (0-15)
--- NOTE | 2021-12-06 10:15 | NUR ---
RT NOTES 1010 RN REQUESTED FOR RT TO SEE PT. 1012 UPON ARRIVAL, PT STATED HE NEEDS TO BE SUCTIONED IN ORAL/TRACHEAL VIA CATHETER. TRIED SX COUPLE TIMES. TINY AMOUNT OF WHITE PHLEGM REMOVED. NO DISTRESS NOTED AT THIS TIME. JOSE D WILKINS MADE AWARE.
[2021-12-06] MEDS ORDERED: SODIUM POLYSTYRENE SULFONATE 15 GM/60 ML UDBTL PO ONE (10:45)
--- NOTE | 2021-12-06 10:52 | NUR ---
dr carlos and dr brigitte ivan was here and seen pt.
[2021-12-06] MEDS ORDERED: POLY17PO4 PO (10:53)
[2021-12-06] MEDS ORDERED: GABA600T PO (10:53)
[2021-12-06] MEDS ORDERED: TRAZ-250 PO (10:53)
[2021-12-06] MEDS ORDERED: Melatonin PO (10:53)
[2021-12-06] MEDS ORDERED: BACL20TA PO (10:53)
--- NOTE | 2021-12-06 13:47 | NUR ---
ashok JIANG ASSISTING PT. INFORMED PT THAT PT/OT WILL SEE HIM THIS P.M.
--- NOTE | 2021-12-06 17:33 | NUR ---
Hector HINTON HERE AND APPLIED BILAT HAND SPLINTS.
--- NOTE | 2021-12-06 17:49 | NUR ---
Patient was seen for OT tx for contracture management. Adjust, fit and applied bilateral hand splints. Chirag JEFFERY was educated and performed return demo on application of splints. RN was able to apply splints appropriately. Pt was able to tolerate Thera ex and Inhibitory techiques to both UE to inhibit ms. tone and increase ROM. Endorsed to RN to apply splint daily 4-6 hrs / day. Adviced pt as well that if he feels pain and skin irritation on both hands to tell nursing right away to remove splints. D/c OT treatment.
--- NOTE | 2021-12-06 19:26 | NUR ---
PT GIVEN WAS STABLE THE WHOLE SHIFT., GIVEN SCHEDULED AND PRN MEDICATIONS. ASSISTED WITH MEALS.
--- NOTE | 2021-12-06 21:51 | NUR ---
Patient education about limiting narcotic intake d/t constipation. Says that "is the reason they have me on colace and miralax." Request for something for 7/10 or 8/10 pain. Education no prn available at this time for 7-8/10 pain. Narinder Hernandez RN
--- NOTE | 2021-12-06 21:55 | NUR ---
Patient says pain is a 6/10 and says he needs his norco and does not want to lay in pain for an hour. Narinder Hernandez RN
--- NOTE | 2021-12-06 22:01 | NUR ---
Patient also request for tramadol and melatonin for sleep. Narinder Hernandez rn
[2021-12-06] MEDS: MELATONIN 5 MG TABLET PO PRN (22:10)
[2021-12-06] MEDS ORDERED: MELATONIN 5 MG TABLET PO ONE ×2 (22:10→22:13)
--- NOTE | 2021-12-06 22:15 | NUR ---
Patient education no tramadol available but there is trazodone. Patient says he said the wrong name. Given prn melatonin 10 milligrams for sleep. Narinder Hernandez RN
[2021-12-07] MEDS: MORPHINE 2 MG/ML INJ. SYRINGE IVP PRN ×6 (00:29→23:09)
[2021-12-07] MEDS: traZODone HCL 50 MG TABLET (DESYREL) PO PRN (00:52)
[2021-12-07 01:36] VITALS: BP_SYST 106
--- NOTE | 2021-12-07 03:42 | NUR ---
Report received from Narinder JEFFERY. Assumed care of patient.
[2021-12-07] MEDS: NORMAL SALINE 5 ML DISP.SYRIN IVF SCH ×3 (06:00→22:08)
--- NOTE | 2021-12-07 07:07 | NUR ---
Closing Patient turned and repositioned with pillow support. Splint to right hand in place but removed when patient reported discomfort. Patient reported severe back pain, given morphine. Education provided about constipation as a side effect as well as about fluid restriction. Patient resistant to fluid restriction. Lima catheter in place draining yellow urine. Alternative call light in place on pillow next to head. Bed low and locked, exit alarm on.
--- NOTE | 2021-12-07 07:35 | NUR ---
PHYSICAL THERAPY CO-SIGN The Physical Therapy Progress Notes documented by Grinding Machine Operator Automatic have been reviewed. Reviewed/Co-Signed by: Franck Patel Documentation Done by: KEVIN LINO PTA Addendum: 12/07/21 at 0736 by Franck Patel PT Amended: Links added.
[2021-12-07 08:11] LABS: ALBUMIN 2.3 g/dL (3.4-4.8); C-REACTIVE PROTEIN QUANT 1.4 mg/dL (0-0.5); CALCIUM 8.6 mg/dL (8.4-11.0); CREATININE 0.79 mg/dL (0.55-1.30); POTASSIUM 4.8 mmol/L (3.5-5.1); TOTAL BILIRUBIN 0.1 mg/dL (0.0-1.0)
--- NOTE | 2021-12-07 08:37 | NUR ---
0800 suctioned orally, small thick white froth secretions from back of throat. pt is able to cough up secretions on their own. no distress noted. Addendum: 12/07/21 at 0839 by Delia Vernon RT Amended: Links added.
[2021-12-07 08:39] LABS: BASOPHILS # (AUTO) 0.1 K/uL (0.0-0.2); BASOPHILS % (AUTO) 0.8 % (0.0-2.0); EOSINOPHILS # (AUTO) 0.4 K/uL (0.0-0.4); EOSINOPHILS % (AUTO) 5.5 % (0.0-4.0); HEMATOCRIT 30.7 % (36-54); HEMOGLOBIN 10.5 g/dL (14.0-18.0); LYMPHOCYTES # (AUTO) 2.8 K/uL (1.0-5.5); LYMPHOCYTES % (AUTO) 40.3 % (20.5-51.5); MEAN CORPUSCULAR HEMOGLOBIN 29 pg (27-31); MEAN CORPUSCULAR HGB CONC 34 % (32-36); MEAN CORPUSCULAR VOLUME 86 fL (79.0-98.0); MONOCYTES # (AUTO) 0.8 K/uL (0.0-1.0); MONOCYTES % (AUTO) 11.6 % (1.7-9.3); NEUTROPHILS # (AUTO) 2.9 K/uL (1.8-7.7); NEUTROPHILS % (AUTO) 41.8 % (40.0-70.0); PLATELET COUNT (AUTO) 296 K/uL (130-430); RED BLOOD CELL COUNT(AUTO) 3.55 MIL/uL (4.2-6.2); RED CELL DISTRIBUTION WIDTH 15.3 % (9.0-15.0); WHITE BLOOD COUNT (AUTO) 6.9 K/uL (4.8-10.8)
[2021-12-07] MEDS: ONDANSETRON HCL 4 MG/2 ML VIAL IVP PRN ×3 (09:40→19:02)
[2021-12-07] MEDS: GABAPENTIN 300 MG CAPSULE PO SCH ×3 (09:42→21:05)
[2021-12-07] MEDS: BACLOFEN 10 MG TABLET PO SCH ×3 (09:42→21:05)
[2021-12-07] MEDS: POLYETHYLENE GLYCOL 3350, 17 GM/ POWD.PACK PO SCH ×2 (09:43→21:05)
[2021-12-07] MEDS: IBUPROFEN 600 MG TABLET PO SCH ×3 (09:43→21:05)
[2021-12-07] MEDS: DOCUSATE SODIUM 100 MG CAPSULE PO SCH ×2 (09:43→21:05)
[2021-12-07] MEDS: SULFAMETHOXAZOLE/TRIMETHOPR DS 1 TABLET PO SCH ×2 (09:43→21:05)
[2021-12-07 10:09] LABS: ERYTHROCYTE SEDIMENTATION RATE 27 MM/HR (0-15)
--- NOTE | 2021-12-07 11:23 | NUR ---
DISCHARGE PLANNING Spoke with pt at bedside, verified staying [facility] [place]. Pt is quadriplegic & girlfriend Olga Lidia is main caregiver. Would like to go to [facility] if not then dc back to hotel & Olga Lidia will assist him. States Olga Lidia has some disabilities herself & was trying to get caregiver thru [employer] but they will not give caregivers without a permanent placement. States that is working with a Computer Repair Instructor in a [facility] program to get him permanent placement. States that they are the ones paying for his hotel placement. Pt has an electric wc & yasmin lift at hotel. Has a hospital bed but at an acquaintance home(pt cannot stay there), cannot have at the hotel. States had home health with [facility] or [facility] in past & would like home health if goes back to hotel. States ok to call girlfriend Olga Lidia to discuss dc. Called & spoke with Olga Lidia Mcdonough, ph [phone], verified [facility]. States is not there yet, won't be there until later maybe in 4-5hrs. States that she has disabilities herself & is unable to care for pt herself. Used to have friends that would help also but are now not able to. States that home health is not enough & cannot get [employer] until gets permanent placement. Is ok with SNF until pt gets permanent placement only if pt is agreeable. Spoke with pt at bedside & states ok to look for SNF but not agreeable yet, will talk to Olga Lidia first & discuss. [place] [facility], ok to dc to SNF or hotel with home health if pt refuses SNF. Addendum: 12/07/21 at 1143 by Marina Kim RN Updated Computer Repair Instructor & dc community planner. Addendum: 12/07/21 at 1235 by Marina Kim RN Called & spoke with Noa at [facility] dept, ph [phone], states this is line to look up auth, no authorization noted for SNF or any other dc planning yet. Can fax dc planning order to fax [phone], order faxed by dc community planner already. Some contracted SNFs: [facility], [facility], [facility], [facility], [facility], [facility], & [facility]. Updated dc community planner.
[2021-12-07 14:00] VITALS: BP_SYST 144
--- NOTE | 2021-12-07 14:09 | NUR ---
1130 PT ORALLY SUCTIONED TWICE, SMALL AMOUNT THICK FROTHY SECRETIONS. PT COUGHED UP THICK WHITE SECRETIONS ON HIS OWN 3 TIMES. WILL CONT TO MONITOR. Addendum: 12/07/21 at 1415 by Delia Vernon RT Amended: Links added.
[2021-12-07 16:25] VITALS: BP_SYST 125
--- NOTE | 2021-12-07 16:26 | NUR ---
Discharge Planning: DCP fax pt referral to : [facility], [facility], [facility], [facility]. DCP to follow up
[2021-12-07] MEDS: HYDROcodone/ACETAMIN 10-325 MG TAB PO PRN (17:14)
[2021-12-07 20:00] VITALS: BP_SYST 132
[2021-12-07] MEDS: OXYCODONE/ACETAMINOPHEN 5-325 TABLET PO PRN (22:15)
[2021-12-07] MEDS: ALBUTEROL SULFATE 0.083% 2.5 MG/3 ML VIAL.NEB INH PRN (22:31)
[2021-12-08 00:49] VITALS: BP_SYST 143
[2021-12-08] MEDS: HYDROcodone/ACETAMIN 10-325 MG TAB PO PRN ×2 (01:46→19:55)
--- NOTE | 2021-12-08 02:40 | NUR ---
@ AROUND 2330 WAS CALLED TO PTS ROOM TO SUCTION AGAIN. PT HAS A HARD TIME EXPECTORATING SECRETIONS. DAY RTS USED AN OPA SIZE 10 AND A 14FR SUCTION CATHETER TO SUCTIONS PT. PT REFUSES TO GO DOWN THE NASAL PASSAGE. STAYED THERE SUCTIONING PT FOR ABUT 20 MINUTES, WITH BREAK IN BETWEEN. SATS STAYED @97%. GOT A MODERATE AMOUNT OF SPUTUM THE WHOLE TIME I WAS THERE. @ 0145 WAS CALLED TO PTS ROOM AGAIN TO SUCTION, THIS TIME GETTING MORE OUT. STAYED FOR ABOUT 15-20 MINUTES. PT WENT WITHOUT DISTRESS, SATS 97%.
[2021-12-08] MEDS: MORPHINE 2 MG/ML INJ. SYRINGE IVP PRN ×5 (04:05→23:18)
[2021-12-08] MEDS: OXYCODONE/ACETAMINOPHEN 5-325 TABLET PO PRN ×2 (05:51→16:30)
[2021-12-08] MEDS: NORMAL SALINE 5 ML DISP.SYRIN IVF SCH ×3 (05:54→21:42)
--- NOTE | 2021-12-08 07:52 | NUR ---
PHYSICAL THERAPY CO-SIGN The Physical Therapy Progress Notes documented by Commodity Manager have been reviewed. Reviewed/Co-Signed by: Franck Patel Documentation Done by: KEVIN LINO PTA Addendum: 12/08/21 at 9332 by Franck Patel PT Amended: Links added.
[2021-12-08 08:00] VITALS: BP_SYST 133
--- NOTE | 2021-12-08 08:00 | NUR ---
OPENING NOTES: PATIENT RESTING IN BED. BREATHING EVEN AND NON LABORED TO RA . FALL AND SAFETY MEASURES REINFORCED. BUTLER CATHETER IN PLACED AND DRAINING BY GRAVITY. CALL LIGHT WITHIN REACH.
[2021-12-08] MEDS: DOCUSATE SODIUM 100 MG CAPSULE PO SCH ×2 (08:21→21:36)
[2021-12-08] MEDS: GABAPENTIN 300 MG CAPSULE PO SCH ×3 (08:21→21:36)
[2021-12-08] MEDS: BACLOFEN 10 MG TABLET PO SCH ×3 (08:21→21:35)
[2021-12-08] MEDS: SULFAMETHOXAZOLE/TRIMETHOPR DS 1 TABLET PO SCH (08:21)
[2021-12-08] MEDS: POLYETHYLENE GLYCOL 3350, 17 GM/ POWD.PACK PO SCH ×2 (08:22→21:36)
[2021-12-08] MEDS: IBUPROFEN 600 MG TABLET PO SCH ×3 (08:22→21:36)
[2021-12-08 09:14] VITALS: BP_SYST 140
[2021-12-08 10:30] LABS: CALCIUM 8.5 mg/dL (8.4-11.0); CREATININE 0.68 mg/dL (0.55-1.30); POTASSIUM 4.3 mmol/L (3.5-5.1)
[2021-12-08 10:34] LABS: ALBUMIN 2.4 g/dL (3.4-4.8); TOTAL BILIRUBIN 0.2 mg/dL (0.0-1.0)
[2021-12-08 12:00] VITALS: BP_SYST 138
[2021-12-08] MEDS ORDERED: MINERAL OIL 133 ML ENEMA RC ONE (12:15)
--- NOTE | 2021-12-08 14:47 | NUR ---
Discharge Planning: DCP followed up on pt referral: [facility]-per Tiny pending DON and admissions Coord. need to review [facility]-per Cherie no male beds [facility]-per Robyn no beds [facility]-per Ann no short term [place] [facility]-no male beds DCP to faxed referral to: [facility] No SNF beds [facility]-no males beds [facility]. DCP to follow up Addendum: 12/08/21 at 1706 by Anjana Jimenez DP DCP spoke to Alondra Hernandez#[phone] F#[phone] requested a updated covid test. Alondra will assist is sending out referrals for patient. DCP gave Nica CM information.
[2021-12-08] MEDS: SODIUM CHLORIDE 500 MG TABLET PO SCH ×2 (15:32→21:36)
[2021-12-08 16:12] VITALS: BP_SYST 135
--- NOTE | 2021-12-08 19:10 | NUR ---
CLOSING NOTES: PATIENT RESTING IN BED. NO S/S OF ACUTE DISTRESS. BED LOCKED,ALARM ON AND IN LOWEST POSITION. BUTLER CATHETER IN PLACED AND DRAINING BY GRAVITY. FALL AND SAFETY MEASURES PROVIDED. CALL LIGHT WITHIN REACH. NEEDS MET THROUGHOUT SHIFT.
[2021-12-08 20:01] VITALS: BP_SYST 142
[2021-12-09 01:00] VITALS: BP_SYST 138
[2021-12-09] MEDS: OXYCODONE/ACETAMINOPHEN 5-325 TABLET PO PRN ×2 (01:21→13:04)
[2021-12-09] MEDS: traZODone HCL 50 MG TABLET (DESYREL) PO PRN (02:18)
[2021-12-09] MEDS: ALBUTEROL SULFATE 0.083% 2.5 MG/3 ML VIAL.NEB INH PRN (02:43)
[2021-12-09] MEDS: MORPHINE 2 MG/ML INJ. SYRINGE IVP PRN ×3 (03:14→11:13)
[2021-12-09] MEDS: HYDROcodone/ACETAMIN 10-325 MG TAB PO PRN ×3 (04:05→15:21)
[2021-12-09] MEDS: NORMAL SALINE 5 ML DISP.SYRIN IVF SCH ×2 (05:27→15:22)
[2021-12-09] MEDS: ACETAMINOPHEN 325 MG TABLET PO PRN ×2 (06:00→18:08)
[2021-12-09 07:34] LABS: BASOPHILS # (AUTO) 0.1 K/uL (0.0-0.2); EOSINOPHILS # (AUTO) 0.4 K/uL (0.0-0.4); EOSINOPHILS % (AUTO) 5.6 % (0.0-4.0); HEMATOCRIT 28.9 % (36-54); HEMOGLOBIN 10.1 g/dL (14.0-18.0); LYMPHOCYTES % (AUTO) 38.4 % (20.5-51.5); MEAN CORPUSCULAR HEMOGLOBIN 30 pg (27-31); MEAN CORPUSCULAR HGB CONC 35 % (32-36); MEAN CORPUSCULAR VOLUME 85 fL (79.0-98.0); MONOCYTES # (AUTO) 1.1 K/uL (0.0-1.0); MONOCYTES % (AUTO) 13.8 % (1.7-9.3); NEUTROPHILS # (AUTO) 3.2 K/uL (1.8-7.7); NEUTROPHILS % (AUTO) 41.2 % (40.0-70.0); PLATELET COUNT (AUTO) 272 K/uL (130-430); RED BLOOD CELL COUNT(AUTO) 3.39 MIL/uL (4.2-6.2); RED CELL DISTRIBUTION WIDTH 15.3 % (9.0-15.0); WHITE BLOOD COUNT (AUTO) 7.7 K/uL (4.8-10.8)
--- NOTE | 2021-12-09 07:52 | NUR ---
PHYSICAL THERAPY CO-SIGN The Physical Therapy Progress Notes documented by Booking Officer have been reviewed. Reviewed/Co-Signed by: Franck Patel Documentation Done by: KEVIN LINO PTA Addendum: 12/09/21 at 0753 by Franck Patel PT Amended: Links added.
[2021-12-09 07:53] VITALS: BP_SYST 138
[2021-12-09 08:00] VITALS: BP_SYST 149
--- NOTE | 2021-12-09 08:00 | NUR ---
Initial Notes Patient is AOX4. No s/s of distress noted. Patient denies being SOB. No Patient was given pain medication already. patient nonambulatory. Breathing is even and nonlabored. Vital signs obtained. Safety precautions in place and call light within reach.
[2021-12-09] MEDS: GABAPENTIN 300 MG CAPSULE PO SCH ×2 (09:16→15:20)
[2021-12-09] MEDS: BACLOFEN 10 MG TABLET PO SCH ×2 (09:16→15:21)
[2021-12-09] MEDS: SODIUM CHLORIDE 500 MG TABLET PO SCH ×2 (09:16→15:20)
[2021-12-09] MEDS: DOCUSATE SODIUM 100 MG CAPSULE PO SCH (09:17)
[2021-12-09] MEDS: IBUPROFEN 600 MG TABLET PO SCH ×2 (09:17→15:22)
[2021-12-09] MEDS: POLYETHYLENE GLYCOL 3350, 17 GM/ POWD.PACK PO SCH (09:17)
[2021-12-09 09:30] LABS: ALBUMIN 2.4 g/dL (3.4-4.8); CALCIUM 8.7 mg/dL (8.4-11.0); CREATININE 0.63 mg/dL (0.55-1.30); PHOSPHORUS 4.1 mg/dL (2.7-4.5); POTASSIUM 4.7 mmol/L (3.5-5.1); TOTAL BILIRUBIN 0.1 mg/dL (0.0-1.0)
[2021-12-09 12:00] VITALS: BP_SYST 140
--- NOTE | 2021-12-09 12:00 | NUR ---
Notes Patient has been cleaned and repositioned. NO s.s of distress noted. Pain medication given. Safety precaution in place and call light within reach.
[2021-12-09] MEDS ORDERED: TOLVAPTAN Non-Formulary 15 MG TABLET PO ONE (12:15)
--- NOTE | 2021-12-09 13:46 | NUR ---
DISCHARGE PLANNING Received msg from director, that received call from Alondra at [facility], ph [phone], pt accepted at [facility] in [place], room 30A, report ph [phone]. Called & lt msg with Alondra. [place] [facility] & states will put in order to dc to snf. Spoke with pt at bedside & he was on ph with horacio Duggan, wanted me to call Olga Lidia so she can place on conference call. Called & spoke with Olga Lidia, ph [phone], and with pt via 3way call by Olga Lidia. Verified that was back home(to [facility]). Pt states that does not want to go to [facility] or any SNF that wants to discharge back to hot room. Per Olga Lidia states she is back and able to assist pt as main caregiver & has found more friends that will be able to help her in assisting pt. Both are refusing any SNF & only want back to Hotel. States that was his baseline prior to admission here and that is where he wants to go. States that his Permanent housing will be avail soon then he will move in there with Olga Lidia. [facility] would like 530pm or later. Called & updated Dr Mixon & gave ph order to dc home/back to hot. Called & set up gurney transportation with [employer], ph [phone], aware that pt is Quadriplegic. Spoke with Lissett at [employer] & states set up gurney transport with [employer] for 6pm supervisor picking crew. If any problems call [facility] [employer] [facility] at ph [phone] with Reservation #[phone]. Called & lt msg with Olga Lidia Mcdonough with time of supervisor picking crew. Updated pt's nurse. Lt msg for charge nurse. Extended Stay: [address], [place] [address] , [address] Transport thru [employer] for 6pm supervisor picking crew, ph [phone], reservation #[phone]
[2021-12-09 13:56] VITALS: BP_SYST 145
--- NOTE | 2021-12-09 16:00 | NUR ---
Notes Patient is watching TV and talking on the phone. No s/s of distress noted. Patient has been medicated for pain. Patient has been repositioned. No SOB. Safety precautions in place and call light within reach.
[2021-12-09 16:21] VITALS: BP_SYST 145
--- NOTE | 2021-12-09 18:30 | NUR ---
Discharge Patient is AOx4. No s/s of distress noted. Patient on room air, breathing is even and nonlabored. [place] Catheter in place, patient stated had a catheter in place prior to being admitted. IV catheter removed. No active bleeding, clean and dry dressing applied. Patient discharged to a hotel via gurney. Patient nonambulatory. Patient given medication reconciliation form and D/C instructions. Exit Care provided. Patient was given pain medication prior to discharge. Patient educated on pain management. Patient verbalized understanding. Patient in stable condition, ID band removed. Rx of given. All belongings sent with patient.
== END 2021-12-09 18:30 | disposition home or self-care (01) | DRG 720 ==
LOC: SED 15:09 → SMU 17:05 → SIC 11-29 05:37 → STU 11-30 09:21 → SMU 11-30 10:08 → STU 12-05 13:29
PROVIDERS: ADMIT Preventive Medicine Preventive Medicine/Occupational Environmental Medicine; ATTEND Preventive Medicine Preventive Medicine/Occupational Environmental Medicine
DX: A41.50 Gram-negative sepsis, unspecified (principal); R65.21 Severe sepsis with septic shock; E43 Unspecified severe protein-calorie malnutrition; G82.50 Quadriplegia, unspecified; N10 Acute pyelonephritis; E87.1 Hypo-osmolality and hyponatremia; D75.839 Thrombocytosis, unspecified; K57.90 Diverticulosis of intestine, part unspecified, without perforation or abscess without bleeding; Z20.822 Contact with and (suspected) exposure to COVID-19; D72.829 Elevated white blood cell count, unspecified; E88.09 Other disorders of plasma-protein metabolism, not elsewhere classified; D64.9 Anemia, unspecified; B96.89 Other specified bacterial agents as the cause of diseases classified elsewhere; R73.9 Hyperglycemia, unspecified; K59.09 Other constipation; E83.51 Hypocalcemia; G89.4 Chronic pain syndrome; E87.5 Hyperkalemia; Z16.24 Resistance to multiple antibiotics; Z68.31 Body mass index [BMI] 31.0-31.9, adult
CPT/HCPCS: 36415; 74018; 76376; 80048; 80053; 81000; 82150; 82533; 83605; 83690; 83735; 83930; 83935; 84100; 84302; 84443; 85025; 85651-TC; 86140; 87086; 94640; 96372; 96374; 97110-GO; 97110-GP; 97112-GO; 97112-GP; 97163-GP; 97530-GP; 99285; G0378; J0610; J0696; J2001; J2270; J2405; J3490; J7060; J7613